=== PATIENT | female | born 1960 | race Caucasian/White ===

== ENCOUNTER 2018-06-24 06:32 | Day surgery (SDC) | payer MEDICARE ==
[~2018-06-24] VITALS: Ht 157.5 cm; Wt 72.7 kg
[2018-06-24 07:17] LABS: ANION GAP 16.5 mmol/L (8-16); CALCIUM 9.5 mg/dL (8.5-10.1); CARBON DIOXIDE 22.6 mmol/L (21.0-32.0); CREATININE - SERUM 3.8 mg/dL (0.6-1.3)
[2018-06-24 07:19] LABS: POTASSIUM - SERUM 4.1 mmol/L (3.5-5.1)
[2018-06-24 07:23] LABS: BASOPHILS 0.5 % (0-2); EOSINOPHILS 1.5 % (0-7); HEMATOCRIT 38.8 % (36.0-48.0); HEMOGLOBIN 12.5 g/dL (12-16); IMMATURE GRANULOCYTES 0.2 % (0-5); MCH 32.4 pg (26.0-34.0); MCHC 32.2 g/dL (31.0-37.0); MCV 100.5 fL (80.0-100.0); MEAN PLATELET VOLUME 9.1 fL (7.4-10.4); MONOCYTES 9.6 % (2-11); NEUTROPHILS 64.2 % (40-80); PLATELET COUNT 406 10x3/uL (130-400); RBC 3.86 10x6/uL (4.00-5.40); RDW 15.5 % (11.5-14.5); WBC 6.1 10x3/uL (4.8-10.8)
[2018-06-24 08:04] LABS: INR 0.99 (0.85-1.17); PROTIME 12.6 SECONDS (11.6-15.0)
[2018-06-24 08:18] LABS: APTT 32.1 SECONDS (22.8-39.4)
[2018-06-24] MEDS ORDERED: AMITRIPTYLINE H50 MG PO (08:29)
[2018-06-24] MEDS ORDERED: TRICOR145 MG PO (08:30)
[2018-06-24] MEDS ORDERED: PROZAC20 MG PO (08:30)
[2018-06-24] MEDS ORDERED: LANTUS INSULIN10 ML SC (08:31)
[2018-06-24] MEDS ORDERED: TOPROL XL25 MG (08:32)
[2018-06-24] MEDS ORDERED: LOPRESSOR25 MG PO (08:32)
[2018-06-24] MEDS ORDERED: ZOFRAN4 MG PO (08:33)
[2018-06-24] MEDS ORDERED: PRAVACHOL20 MG (08:34)
[2018-06-24] MEDS ORDERED: RANITIDINE HCL150 M1 (08:35)
[2018-06-24] MEDS ORDERED: XARELTO20 MG PO (08:36)
[2018-06-24] MEDS ORDERED: ZANAFLEX4 MG PO (08:37)
[2018-06-24 08:53] VITALS: Ht 157.5 cm; Wt 72.7 kg
[2018-06-24 18:01] VITALS: BP 132/70
--- NOTE | 2018-06-24 19:32 | NUR ---
PATIENT LAYING IN BED. NO DISTRESS NOTED. NO COMPLAINTS AT THIS TIME.
[2018-06-24 20:31] VITALS: BP 132/73
--- NOTE | 2018-06-25 00:21 | NUR ---
PATIENT LAYING IN BED, EYES CLOSED, CHEST RISING AND FALLING NO DISTRESS NOTED.
[2018-06-25 01:02] VITALS: BP 109/67
--- NOTE | 2018-06-25 02:38 | NUR ---
PATIENT LAYING IN BED. NO COMPLAINTS AT THIS TIME. NO DISTRESS NOTED.
--- NOTE | 2018-06-25 03:48 | NUR ---
I have reviewed this patient and I concur with the Shift Assessment completed by the Licensed Practical Nurse today this shift.
--- NOTE | 2018-06-25 05:24 | NUR ---
PATIENT'S RIGHT CHEST HEMOSPLIT BLEEDING. DRESSING CHANGED PER PROTOCOL. HEMOSPLIT NOT BLEEDING ANYMORE AT THIS TIME. WILL CONTINUE TO MONITOR.
[2018-06-25 05:37] VITALS: BP 124/69
[2018-06-25 06:26] LABS: BASOPHILS 0.5 % (0-2); EOSINOPHILS 1.2 % (0-7); HEMATOCRIT 35.7 % (36.0-48.0); HEMOGLOBIN 10.9 g/dL (12-16); IMMATURE GRANULOCYTES 0.2 % (0-5); LYMPHOCYTES 27.5 % (15-50); MCH 31.3 pg (26.0-34.0); MCHC 30.5 g/dL (31.0-37.0); MEAN PLATELET VOLUME 8.9 fL (7.4-10.4); MONOCYTES 12.2 % (2-11); NEUTROPHILS 58.4 % (40-80); RBC 3.48 10x6/uL (4.00-5.40); RDW 15.1 % (11.5-14.5); WBC 6.6 10x3/uL (4.8-10.8)
[2018-06-25 06:27] LABS: MCV 102.6 fL (80.0-100.0); PLATELET COUNT 301 10x3/uL (130-400)
[2018-06-25 06:55] LABS: ANION GAP 17.5 mmol/L (8-16); CALCIUM 9.3 mg/dL (8.5-10.1); CARBON DIOXIDE 19.9 mmol/L (21.0-32.0); CREATININE - SERUM 3.8 mg/dL (0.6-1.3); MAGNESIUM - SERUM 1.6 mg/dL (1.8-2.4); PHOSPHOROUS 6.7 mg/dL (2.5-4.9); POTASSIUM - SERUM 4.4 mmol/L (3.5-5.1)
[2018-06-25 07:29] VITALS: BP 115/71
--- NOTE | 2018-06-25 08:10 | NUR ---
MORNING ROUNDS MADE. PT SITTING UP IN BED. A/O X 4. UP WITH STAND BY ASSIST. PT C/O PAIN, BUT STATES THAT SHE JUST HAD A PAIN PILL AND WILL GIVE IT TIME TO KICK IN. IV TO R FA, SL, PATENT, DRSG C/D/I, NO REDNESS OR EDEMA NOTED. 1L O2 VIA NC. WILL ATTEMPT TO WEAN OFF 02 BEFORE DC. L AV FISTULA. R CHEST HEMESPLIT, OLD BLOOD NOTED UNDER DRSG. DRSG TO L CHEST, C/D/I. BREATHING EVEN AND UNLABORED. NO FURTHER CONERNS AT THIS TIME. NO EDEMA NOTED. FALL PRECAUTIONS NOTED. WILL CTM.
--- NOTE | 2018-06-25 09:29 | NUR ---
PT C/O R CHEST HEMESPLIT BLEEDING. UPON EXAMINATION OF HEMESPLIT AND DRSG, BLOOD NOTED UNDER DRSG AND DOWN PT SIDE AND ON GOWN. NOTIFIED SAEED BLACKWELL. SAEED AND HD NURSES CHANGED HEMESPLIT DRSG. DRSG NOW C/D/I. PT RESTING COMFORTABLY. NO C/O PAIN AT THIS TIME. WILL CTM.
--- NOTE | 2018-06-25 09:41 | NUR ---
DR. LALA NOTIFIED ABOUT PT DC. ORDERS GIVEN TO DC PT. EDITA BLACKWELL NOTIFIED, NO ANSWER, MESSAGE LEFT AT [phone].
--- NOTE | 2018-06-25 09:46 | NUR ---
PT NOTIFIED OF DC PLANS AND PLANS TO DIALYSIS AT CLINIC
--- NOTE | 2018-06-25 09:46 | NUR ---
VITALS STABLE. TOOK MEDS WITHOUT DIFFICULTY. DENIES PAIN OR DISCOMFORT AT THSI TIME. FALL PRECAUTIONS IN PLACE. BED LOWERED AND LOCKED. CL IN REACH. WILL CTM
--- NOTE | 2018-06-25 11:43 | NUR ---
I have reviewed this patient and I concur with the Shift Assessment completed by the Licensed Practical Nurse today this shift.
--- NOTE | 2018-06-25 11:52 | NUR ---
IV REMOVED. TIP INTACT. NO FURTHER CONCERNS AT THIS TIME.
--- NOTE | 2018-06-25 11:53 | NUR ---
DC GIVEN AT THIS TIME. PT DENIES FURTHER CONCERNS PT DC HOME VIA WHEELCHAIR PER PERSONAL CAR WITH FAMILY
--- NOTE | 2018-06-27 09:41 | OP ---
PATIENT NAME: SINDY DUMONT MEDICAL RECORD: [id number] :60 LOCATION:D.OPS ADMISSION DATE: SURGEON: KASSIDY LALA MD DATE OF OPERATION: 06/24/2018 PREOPERATIVE DIAGNOSES: 1. End-stage renal disease. 2. CHF, undifferentiated. 3. Hypertension. 4. Diabetes mellitus. 5. Hypercholesterolemia. 6. COPD. POSTOPERATIVE DIAGNOSES: 1. End-stage renal disease. 2. CHF, undifferentiated. 3. Hypertension. 4. Diabetes mellitus. 5. Hypercholesterolemia. 6. COPD. PROCEDURES: 1. Right IJ 19-cm HemoSplit catheter placement. 2. Fluoroscopic interpretation. 3. Left upper extremity axillary artery to axillary vein AV graft with Impra PTFE 4-7 mm tapered graft. SURGEON: Kassidy Lala MD REPORT OF PROCEDURE: The patient's right neck was prepped and draped in sterile fashion. Using ultrasound guidance, we were able to cannulate the right internal jugular vein and a guidewire was advanced with ease. Fluoro was used to note that the wire was in good position in the venous system. A skin incision was made on the right lateral chest and a 19-cm HemoSplit catheter was tunneled between this incision and the wire exit site. The multiple dilators were placed over the wire under fluoroscopic guidance followed by the dilator trocar device. The dilator and wire were removed and the catheter tips were advanced through the trocar. Once the trocar was removed, it was pulled back until it rested in good position at the right atrial superior vena caval junction. The catheter aspirated nonpulsatile dark blood and flushed easily with heparinized saline. We sutured the catheter into place with 2-0 Prolenes and the skin incisions were closed with subcutaneous 5-0 Monocryl. After this was dressed appropriately, then we removed the indwelling left IJ HemoSplit catheter and applied pressure to the area. We then prepped and draped the patient's left upper extremity. An ultrasound was used to inspect the patient's cephalic vein. It was noted to be very small on the extent of the arm, so it was not going to be usable for an AV fistula. We elected to perform an AV graft. A skin incision was made in the upper medial arm. Electrocautery was used to dissect through the subcutaneous tissues until we encountered the axillary vein and the axillary artery. Vesseloops were placed around these vessels proximally and distally. We then tunneled a PTFE Impra 4-7 tapered graft around the upper arm using the Impra tunnelers. The 2 separate incisions were made on the distal upper arm in order to facilitate this. Once the graft was in position, then we performed our arterial anastomosis first. The patient was given 5000 units of heparin IV. After the adequate time was allowed, a OPERATIVE REPORT [id number] SINDY DUMONT beveled tip was applied to the 4 mm end of the graft and an arteriotomy was performed in the axillary artery. An end-to-side anastomosis was performed using a running 6-0 Prolene. At the conclusion of this, we had good pulsatile flow through the vessel and into the graft. There was one area of bleeding, which was oversewn with a piece of 6-0 Prolene in a [id number] fashion, which discontinued the bleeding. We then performed an end-to-side anastomosis of the 7-mm portion of the graft to the axillary vein. This was done by constricting the vessel proximally and distally and cutting the graft with a beveled tip. The anastomosis was performed with a running 6-0 Prolene. At the conclusion of this, there was noted to be good pulsatile flow through the vessel with a palpable thrill present. The patient had no evidence of any active bleeding at conclusion of this. We had good flow through the vessel. I could feel a palpable pulse in the patient's left radial artery. I then tied off the axillary vein just distal to the anastomosis to stop any backflow into the arm. This was done with 3-0 silk. At the conclusion of this, we continued to have good flow through the vessels and no evidence of any bleeding. We then irrigated out the wounds thoroughly with normal saline. The subcutaneous tissues were all reapproximated with interrupted 3-0 Vicryl and the skin incisions were closed with running subcutaneous 5-0 Monocryl. COMPLICATIONS: None. CONDITION: Stable. ANESTHESIA: General endotracheal. BLOOD LOSS: 100 mL. TRANSINT:[id number] Voice Confirmation ID: [id number] DOCUMENT ID: [id number] KASSIDY LALA MD at 0941 CC: DA WOOD MD [id number] DICTATION DATE: 06/24/18 165 FIRE DEPARTMENT BATTALION CHIEF: 06/24/182024 [facility] 06/25/18 [facility] [address] [place] [address]
== END 2018-06-25 11:56 | disposition home or self-care (01) ==
LOC: D.OPS 06:32 → D.M2 06:32 → D.OPS 11:45 → D.M2 17:27 → D.OPS 06-25 11:56
PROVIDERS: Anesthesiology; ATTEND Surgery
DX: E11.22 Type 2 diabetes mellitus with diabetic chronic kidney disease (principal); I13.2 Hypertensive heart and chronic kidney disease with heart failure and with stage 5 chronic kidney disease, or end stage renal disease; I50.9 Heart failure, unspecified; N18.6 End stage renal disease; E78.00 Pure hypercholesterolemia, unspecified; J44.9 Chronic obstructive pulmonary disease, unspecified; Z01.812 Encounter for preprocedural laboratory examination